=== PATIENT | male | born 1990 | race African-American/Black ===

== ENCOUNTER 2020-08-13 11:17 | Emergency (ER) | payer SELFPAY ==
[~2020-08-13] VITALS: Ht 177.8 cm; Wt 78.0 kg
[2020-08-13] MEDS ORDERED: IBUPROFEN 800MG TABLET PO ONE (11:45)
[2020-08-13] MEDS ORDERED: IBUP-2029 MT (13:57)
[2020-08-13 14:06] VITALS: BP 135/78
== END 2020-08-13 14:07 | disposition home or self-care (01) ==
LOC: ER 11:37
DX: S40.012A Contusion of left shoulder, initial encounter (principal); W18.39XA Other fall on same level, initial encounter; Y93.89 Activity, other specified; Y92.89 Other specified places as the place of occurrence of the external cause; Y99.8 Other external cause status
CPT/HCPCS: 73030; 73200; 99284